=== PATIENT | female | born 1985 | race Caucasian/White ===

== ENCOUNTER 2016-07-07 09:59 | Emergency (ER) | payer BC, MEDICAID ==
[~2016-07-07] VITALS: Ht 157.5 cm; Wt 81.5 kg
[2016-07-07 09:59] VITALS: BP 115/75; PULSE 82; RESP 18; TEMP 97.5; O2SAT 97
[~2016-07-07 09:59] MED LIST: TRAM50 PO
--- NOTE | 2016-07-07 11:54 | PD ---
HPI Chief Complaint: Pain: Acute or Chronic Time Seen by Provider: 11:54 Travel History International Travel<30 days: No Contact w/Intl Traveler<30days: No Traveled to known affect area: No History of Present Illness HPI 30-year-old female presents to the emergency Department with complaint of redness, mild swelling, and pain into her right foot just below the great toe since yesterday. Denies injury. Denies history of gout. Denies fever, chills , nausea, vomiting. Reports some numbness and tingling to the toe but denies loss of sensation. Denies decreased range of motion, decreased strength to the affected extremity. Pain is worse with walking and palpation. No known relieving factors. Did take Tylenol with no relief of symptoms. Allergies to bee stings. Denies significant past medical history. No other modifying factors or associated signs and symptoms. PFSH Past Medical History Medical History: Denies Significant Hx Tetanus Vaccination: > 5 Years ?: Not Past Surgical History Surgical History: No Previous Surgery Social History Alcohol Use: Yes (OCC) Tobacco Use: No Substance Use: No Allergies-Medications (Allergen,Severity, Reaction): Coded Allergies: Bee Sting (Verified Allergy, Severe, Anaphylaxis, 07/07/16) Reported Meds & Prescriptions Reported Meds & Active Scripts Active Review of Systems Except as stated in HPI: all other systems reviewed are Neg Physical Exam Narrative GENERAL: Well-nourished, well-developed patient, in no acute distress; afebrile , nontoxic-appearing SKIN: Warm and dry. Right foot dorsal great toe with mild erythema and mild edema; with tenderness on palpation. No abscess noted. Right lower extremity is supple and non-tense with 2+ pedal pulse and sensory intact. Great toe with minimal range of motion secondary to pain and swelling; with sensory intact and less than 2 second cap refill. HEAD: Atraumatic. Normocephalic. EYES: Pupils equal and round. No scleral icterus. No injection or drainage. ENT: Mucosa pink and moist. No erythema or exudates. NECK: Trachea midline. No lymphadenopathy. CARDIOVASCULAR: Regular rate. RESPIRATORY: No accessory muscle use. GASTROINTESTINAL: Rounded. MUSCULOSKELETAL: No obvious deformities. No clubbing. No cyanosis. No edema. NEUROLOGICAL: Awake and alert. Oriented 3. No obvious cranial nerve deficits. Motor grossly within normal limits. Normal speech. Moves all extremities. 5/5 strength to all extremities. PSYCHIATRIC: Appropriate mood and affect; insight and judgment normal. Data Data Last Documented VS Vital Signs Date Time Temp Pulse Resp B/P Pulse Ox O2 Delivery O2 Flow Rate FiO2 07/07/16 09:59 97.5 82 18 115/75 97 Room Air Orders Foot, Complete ([id number]) (07/07/16 11:54) Ketorolac Inj (Toradol Inj) (07/07/16 12:00) [facility] Medical Decision Making Medical Screen Exam Complete: Yes Emergency Medical Condition: Yes Medical Record Reviewed: Yes Differential Diagnosis Gout, cellulitis, less likely septic joint Narrative Course 30-year-old female with possible gout exacerbation or cellulitis to the right foot metatarsal region. I'm suspecting gout. Denies injury. Right foot x-ray ordered to rule out acute process. Toradol ordered. 1228: Right foot x-ray concludes: No acute abnormality; Small area of calcification involving the plantar soft tissues at the level of the first metatarsal head. These likely reflect prior trauma or possible old foreign body. Patient provided with a copy of the x-ray report. I will treat the patient for possible gout exacerbation with prednisone 5 days and cellulitis with Flexeril Bactrim. Instructed the patient to follow up with podiatry. Crutches provided for support. Patient verbalizes understanding and agreement with treatment plan. Patient is medically cleared and stable for discharge. Discussed reasons to return to the emergency department. Instructed patient to follow up with primary care provider. Patient agrees with treatment plan. The patients vital signs are stable and the patient is stable for outpatient follow- up and treatment. Patient discharged home, stable and in no acute distress. Diagnosis Primary Impression: Right foot pain Referrals: Primary Care Physician Patient Instructions: Cellulitis (ED), Crutch Instructions (ED), General Instructions, Gout (ED), Soft Tissue Foreign Body (ED) Departure Forms: Tests/Procedures, Work Release Enter return to work date: Jul 11, 2016 Additional Instructions: Rest Elevate affected extremity Prednisone as prescribed Avoid red meat, shellfish, alcohol, and other triggering foods to decrease risk of gout flare-ups Crutches for support Follow-up with your primary care provider Return to the emergency department with worsening of symptoms Med/Other Pt SpecificInfo: Prescription(s) given Scripts Prednisone (Deltasone)20 Mg Tab40 Mg PO DAILY 5 Days Ref 0 Prov:Veronique LafleurP 07/07/16 Ibuprofen 800 Mg [id number] Mg PO Q6HR PRN (PAIN) #30 TAB Ref 0 Prov:Veronique LafleurP 07/07/16 Cephalexin (Keflex)500 Mg Drt350 Mg PO Q6H 10 Days Ref 0 Prov:Veronique LafleurP 07/07/16 Sulfamethoxazole-Trimethoprim (Bactrim DS)800-160 Mg Tab1 Tab PO BID 10 Days Ref 0 Prov:Veronique Lafleur 07/07/16 Disposition: 01 DISCHARGE HOME Condition: Stable Veronique Lafleur Jul 07, 2016 11:54
[2016-07-07] MEDS ORDERED: KETOROLAC TROMETHAMINE 60 MG/2 ML (IM) VIAL IM ONE (12:00)
--- NOTE | 2016-07-07 12:25 | RADRPT ---
EXAM DATE/TIME: 07/07/2016 12:16 [facility] COMPARISON: No previous studies available for comparison. INDICATIONS : Patient states no known injury. Pain started yesterday MEDICAL HISTORY : None. SURGICAL HISTORY : None. ENCOUNTER: Initial ACUITY: 2 days PAIN SCORE: 10/10 LOCATION: Right Foot. FINDINGS: Three view examination of the right foot demonstrates no soft tissue swelling, dislocation, or fractu re. The tarsal bones appear intact. The interphalangeal and metatarsophalangeal joints are intact. The calcaneus is intact. Bony mineralization is normal. A small area of heterogeneous calcificatio n is seen along the plantar soft tissues at the level of the first metatarsal. No radiopaque foreign body observed. CONCLUSION: 1. No acute abnormality. 2. Small area of calcification involving the plantar soft tissues at the level of the first metatarsa l head. These likely reflect prior trauma or possible old foreign body. Ulices Ruiz Jr., MD on July 07, 2016 at 12:21 Board Certified Radiologist. This report was verified electronically.
[2016-07-07] MEDS ORDERED: BACT800T5 PO (12:30)
[2016-07-07] MEDS ORDERED: CEPH-460 PO (12:30)
[2016-07-07] MEDS ORDERED: PRED-503 PO (12:30)
[2016-07-07] MEDS ORDERED: IBUP800T23 PO (12:30)
== END 2016-07-07 13:30 | disposition home or self-care (01) ==
LOC: NEPB 09:59
DX: M79.671 Pain in right foot (principal); L53.9 Erythematous condition, unspecified; R22.41 Localized swelling, mass and lump, right lower limb; R20.2 Paresthesia of skin
CPT/HCPCS: 73630; 96372; 99283; E0113; J1885

== ENCOUNTER 2016-09-04 17:23 | Emergency (ER) | payer BC, MEDICAID ==
[~2016-09-04] VITALS: Ht 157.5 cm; Wt 85.0 kg
[~2016-09-04 17:23] MED LIST changes: +BACT800T5 PO; +CEPH-460 PO; +IBUP800T23 PO; +PRED-503 PO; -TRAM50 PO
[2016-09-04 17:24] VITALS: BP 127/75; PULSE 89; RESP 16; TEMP 98.2; O2SAT 99
[2016-09-04] MEDS ORDERED: ALBU1AER5 INH (17:41)
[2016-09-04] MEDS ORDERED: IBUP800T23 PO (17:54)
[2016-09-04] MEDS ORDERED: ROBA500T PO (17:54)
--- NOTE | 2016-09-04 17:55 | PD ---
HPI Chief Complaint: Back/ Neck Pain or Injury Time Seen by Provider: 17:48 Travel History International Travel<30 days: No Contact w/Intl Traveler<30days: No Traveled to known affect area: No History of Present Illness HPI 30-year-old female presents to emergency Department with complaint of right neck stiffness and pain upon wakening up on morning. Denies injury. Denies heavy lifting or strain. Denies paresthesias, loss of sensation, decreased range of motion, decreased strength to bilateral upper extremities. Denies fever, vomiting. Has tried ibuprofen, Aleve, icy hot with no relief of symptoms. Denies recent illness. Has no other medical complaints. Allergies to bee stings. No other modifying factors or associated signs and symptoms. PFSH Past Medical History Asthma: Yes Diabetes: No Patient Takes Glucophage: No Diminished Hearing: No Tetanus Vaccination: > 5 Years Influenza Vaccination: No ?: Not LMP: 07/23/2016 Past Surgical History Surgical History: No Previous Surgery Social History Alcohol Use: No Tobacco Use: No Substance Use: No Allergies-Medications (Allergen,Severity, Reaction): Coded Allergies: Bee Sting (Verified Allergy, Severe, Anaphylaxis, 07/07/16) Reported Meds & Prescriptions Reported Meds & Active Scripts Active Ibuprofen 800 Mg Tab 800 Mg PO Q6HR PRN Robaxin (Methocarbamol) 500 Mg Tab 500 Mg PO QID PRN Deltasone (Prednisone) 20 Mg Tab 40 Mg PO DAILY 5 Days Ibuprofen 800 Mg Tab 800 Mg PO Q6HR PRN Reported Proair Respiclick Inh (Albuterol Sulfate) 90 Mcg/Act Aerp 1 Puff INH Q4H PRN Review of Systems Except as stated in HPI: all other systems reviewed are Neg Physical Exam Narrative GENERAL: Well-nourished, well-developed female patient, in no acute distress; afebrile, nontoxic-appearing SKIN: Warm and dry. HEAD: Atraumatic. Normocephalic. EYES: Pupils equal and round. No scleral icterus. No injection or drainage. ENT: Mucosa pink and moist. Airway patent. NECK: Trachea midline. No lymphadenopathy. Active rotation of the neck less than 45 to the right; approximately 45 rotation to the left. No midline point tenderness on palpation of the cervical spine. Repeat is tenderness to the right lateral musculature of the neck. No obvious deformities. CARDIOVASCULAR: Regular rate. RESPIRATORY: No accessory muscle use. GASTROINTESTINAL: Obese. MUSCULOSKELETAL: No obvious deformities. No clubbing. No cyanosis. No edema. Normal gait. BACK: No point tenderness on palpation of spine. No obvious deformities. NEUROLOGICAL: Awake and alert. Oriented 3. No obvious cranial nerve deficits. Motor grossly within normal limits. Normal speech. Moves all extremities. 5/5 strength to all extremities. Sensory intact. PSYCHIATRIC: Appropriate mood and affect; insight and judgment normal. Data Data Last Documented VS Vital Signs Date Time Temp Pulse Resp B/P Pulse Ox O2 Delivery O2 Flow Rate FiO2 09/04/16 17:24 98.2 89 16 127/75 99 Orders Ketorolac Inj (Toradol Inj) (09/04/16 18:00) Orphenadrine Inj (Norflex Inj) (09/04/16 18:00) [facility] Medical Decision Making Medical Screen Exam Complete: Yes Emergency Medical Condition: Yes Medical Record Reviewed: Yes Differential Diagnosis Stiff neck, cervical strain, muscle spasm neck Narrative Course 30-year-old female with stiffness of the neck of the right. Denies injury. Denies recent illness. Patient is afebrile nontoxic-appearing. No midline point tenderness on palpation of the cervical spine. Denies fever, vomiting. Toradol and Norflex administered in the ER. 1837: Patient reports vast improvement in neck pain. She is able to actively rotate her neck to the left and right greater than 45. Ibuprofen and Robaxin prescribed for home. Patient verbalizes understanding and agreement with treatment plan. Patient is medically cleared and stable for discharge. Discussed reasons to return to the emergency department. Instructed patient to follow up with primary care provider. Patient agrees with treatment plan. The patients vital signs are stable and the patient is stable for outpatient follow- up and treatment. Patient discharged home, stable and in no acute distress. Diagnosis Primary Impression: Stiffness of neck Referrals: Primary Care Physician Patient Instructions: Acute Neck Pain (ED), General Instructions, Neck Exercises (GEN) Departure Forms: Tests/Procedures, Work Release Enter return to work date: September 06, 2016 Additional Instructions: Tylenol or ibuprofen as directed and as needed to reduce pain Robaxin as prescribed for muscle spasms Get adequate rest Ice and/or heating pad to affected area to reduce pain Avoid aggravating activity; increase activity as tolerated Follow-up with primary care provider Return to the emergency department immediately with worsening symptom Med/Other Pt SpecificInfo: Prescription(s) given Scripts Ibuprofen 800 Mg [id number] Mg PO Q6HR PRN (PAIN) #30 TAB Ref 0 Prov:Veronique Lafleur 09/04/16 Methocarbamol (Robaxin)500 Mg [id number] Mg PO QID PRN (MUSCLE SPASM) #30 TAB Ref 0 Prov:Veronique Lafleur 09/04/16 Disposition: 01 DISCHARGE HOME Condition: Stable Veronique Lafleur September 04, 2016 17:54
[2016-09-04] MEDS ORDERED: KETOROLAC TROMETHAMINE 60 MG/2 ML (IM) VIAL IM ONE (18:00)
[2016-09-04] MEDS ORDERED: ORPHENADRINE INJ 60 MG/2 ML AMP IM ONE (18:00)
== END 2016-09-04 18:40 | disposition home or self-care (01) ==
LOC: NEPK 17:23
DX: M43.6 Torticollis (principal); M54.2 Cervicalgia
CPT/HCPCS: 96372; 99284; J1885; J2360

== ENCOUNTER 2016-12-13 22:37 | Emergency (ER) | payer OTHER, BC, MEDICAID ==
[~2016-12-13] VITALS: Ht 160 cm; Wt 81.5 kg
[~2016-12-13 22:37] MED LIST changes: +ALBU1AER5 INH; -BACT800T5 PO; -CEPH-460 PO; +ROBA500T PO
[2016-12-13 22:46] VITALS: BP 125/75; PULSE 78; RESP 16; TEMP 98.8; O2SAT 99
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
[2016-12-13] MEDS ORDERED: IBUPROFEN 600 MG TAB PO ONE (23:45)
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
[2016-12-14] MEDS ORDERED: CYCL1TAB29 PO (01:07)
== END 2016-12-14 01:35 | disposition home or self-care (01) ==
LOC: NEPD 22:37
DX: S16.1XXA Strain of muscle, fascia and tendon at neck level, initial encounter (principal); R20.0 Anesthesia of skin; J45.909 Unspecified asthma, uncomplicated; V43.52XA Car driver injured in collision with other type car in traffic accident, initial encounter
CPT/HCPCS: 72125